=== PATIENT | female | born 1955 | race Caucasian/White ===

== ENCOUNTER → 2016-09-28 | Outpatient (CLI) | payer BC ==
--- NOTE | 2016-10-01 13:14 | MM ---
Reason for exam: screening (asymptomatic). Last mammogram was performed 3 years and 9 months ago. History: Patient is postmenopausal. Physical Findings: A clinical breast exam by your physician is recommended on an annual basis and results should be correlated with mammographic findings. MG 3D Screening Mammo W/Cad Bilateral CC, MLO, and XCCL view(s) were taken. Prior study comparison: December 18, 2012, CAD bilateral diagnostic mammogram. October 01, 2000, bilateral special view mammogram. The breast tissue is almost entirely fat. There is chronic nodularity in the right breast. No significant changes when compared with prior studies. ASSESSMENT: Benign, BI-RAD 2 RECOMMENDATION: Routine screening mammogram of both breasts in 1 year.
== END | disposition home or self-care (01) ==
LOC: RADMAMWWP 14:38
PROVIDERS: ATTEND Family Medicine
DX: Z12.31 Encounter for screening mammogram for malignant neoplasm of breast (principal)
CPT/HCPCS: 77063; G0202

== ENCOUNTER 2018-05-29 20:26 | Emergency (ER) | payer BC ==
[2018-05-29 20:36] VITALS: RESP 18; TEMP 97.9
[2018-05-29] MEDS ORDERED: ONDANSETRON 4 MG/2 ML VIAL IVP STA (21:30)
[2018-05-29] MEDS ORDERED: MECLIZINE 12.5 MG TAB PO STA (21:30)
[2018-05-29] MEDS ORDERED: SODIUM CHLORIDE 0.9% 1,000 ML IV STA (21:30)
--- NOTE | 2018-05-29 22:17 | CT ---
EXAMINATION TYPE: CT brain wo con DATE OF EXAM: 05/29/2018 COMPARISON: None HISTORY: dizziness, nausea CT DLP: 1058.4 mGycm Automated exposure control for dose reduction was used. FINDINGS: There is mild cerebral cortical atrophy. There is no mass effect nor midline shift. There is no sign of intracranial hemorrhage. There is no evidence of posterior fossa mass. There is opacification left maxillary sinus. Calvarium is intact. IMPRESSION: MINIMAL ATROPHY. NO ACUTE INTRACRANIAL ABNORMALITY. LEFT MAXILLARY SINUSITIS.
[2018-05-29 22:23] LABS: Basophils % (A) 0 %; Eosinophils # (A) 0.2 k/uL (0-0.7); Eosinophils % (A) 3 %; HCT 40.4 % (34.0-46.0); HGB 13.6 gm/dL (11.4-16.0); Lymphocytes # (A) 2.6 k/uL (1.0-4.8); Lymphocytes % (A) 34 %; MCH 28.8 pg (25.0-35.0); MCHC 33.8 g/dL (31.0-37.0); MCV 85.5 fL (80.0-100.0); Mean Platelet Volume 7.1; Monocytes # (A) 0.6 k/uL (0-1.0); Monocytes % (A) 7 %; Neutrophils % (A) 53 %; Platelet Count 206 k/uL (150-450); RBC 4.72 m/uL (3.80-5.40); RDW 12.9 % (11.5-15.5); WBC 7.5 k/uL (3.8-10.6)
[2018-05-29 22:26] LABS: ALT 32 U/L (9-52); AST 24 U/L (14-36); Albumin 4.2 g/dL (3.5-5.0); Alkaline Phosphatase 67 U/L (38-126); Anion Gap 7 mmol/L; Blood Urea Nitrogen 23 mg/dL (7-17); Carbon Dioxide 31 mmol/L (22-30); Chloride 104 mmol/L (98-107); Glucose 108 mg/dL (74-99); Potassium 4.5 mmol/L (3.5-5.1); Sodium 142 mmol/L (137-145); Total Bilirubin 0.4 mg/dL (0.2-1.3); Total Protein 7.6 g/dL (6.3-8.2)
[2018-05-29 22:28] LABS: Appearance,Urine Clear (Clear); Bilirubin,Urine Negative (Negative); Blood,Urine Negative (Negative); Color,Urine Colorless; Glucose,Urine (UA) Negative (Negative); Ketones,Urine Negative (Negative); Leukocyte Esterase,Urine Negative (Negative); Nitrite,Urine Negative (Negative); Protein,Urine Negative (Negative); Specific Gravity,Urine 1.003 (1.001-1.035); Urobilinogen,Urine <2.0 mg/dL (<2.0)
[2018-05-29 23:04] VITALS: BP 191/81; PULSE 54
--- NOTE | 2018-05-30 01:00 | ED ---
General Adult HPI - General Chief complaint: Dizziness Stated complaint: dizzy Time Seen by Provider: 05/29/18 21:08 Source: patient, RN notes reviewed Mode of arrival: ambulatory Limitations: no limitations - History of Present Illness Initial comments: 62-year-old female presents to the emergency determine for a chief complaint of dizziness 2 hours. Patient states she was doing the dishes when she suddenly felt like the room was spinning. She started to feel nauseous. He states she sat down and called her friend who brought her to the emergency department. She states that every turn in the car and her feel dizzy. She denies loss of consciousness, shortness of breath, or chest pain. Patient denies any difficulty walking or gait instability. She states moving her head seems to make the dizziness worse. She denies a history of vertigo but states her mother had vertigo. Patient denies a history of high cholesterol but does have blood pressure. Patient denies any cardiac history. She denies any head injuries. Patient has no other complaints at this time including shortness of breath, chest pain, abdominal pain, headache, or visual changes. - Related Data Home Medications Medication Instructions Recorded Confirmed Aspirin EC [Ecotrin] 325 mg PO DAILY PRN 05/29/18 05/29/18 Fish Oil/Dha/Epa [Fish Oil 1,200 1 cap PO DAILY 05/29/18 05/29/18 mg Fish Oil] Losartan Potassium [Cozaar] 25 mg PO HS 05/29/18 05/29/18 Multivitamins, Thera [Multivitamin 1 tab PO DAILY 05/29/18 05/29/18 (formulary)] Previous Rx's Medication Instructions Recorded Meclizine [Antivert] 25 mg PO TID PRN #30 tab 05/30/18 Allergies Allergy/AdvReac Type Severity Reaction Status Date / Time codeine Allergy Unknown Verified 05/29/18 21:15 pain medications Allergy Unknown Uncoded 05/29/18 20:37 Review of Systems ROS Statement: Those systems with pertinent positive or pertinent negative responses have been documented in the HPI. ROS Other: All systems not noted in ROS Statement are negative. 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 Seizures just in right arm. Pneumina History of Any Multi-Drug Resistant Organisms: None Reported Past Surgical History: Cholecystectomy Past Psychological History: No Psychological Hx Reported Smoking Status: Never smoker Past Alcohol Use History: None Reported Past Drug Use History: None Reported General Exam Limitations: no limitations General appearance: alert, in no apparent distress Head exam: Present: atraumatic, normocephalic, normal inspection Eye exam: Present: normal appearance, PERRL, EOMI. Absent: scleral icterus, conjunctival injection, nystagmus, periorbital swelling ENT exam: Present: normal exam, normal oropharynx (Uvula midline), mucous membranes moist, normal external ear exam. Absent: TM's normal bilaterally ( small area of scarring on inferior TM) Neck exam: Present: normal inspection, full ROM. Absent: tenderness, meningismus, lymphadenopathy Respiratory exam: Present: normal lung sounds bilaterally. Absent: respiratory distress, wheezes, rales, rhonchi, stridor Cardiovascular Exam: Present: regular rate, normal rhythm, normal heart sounds. Absent: systolic murmur, diastolic murmur, rubs, gallop, clicks GI/Abdominal exam: Present: soft, normal bowel sounds. Absent: distended, tenderness, guarding, rebound, rigid Neurological exam: Present: alert, oriented X3, CN II-XII intact Expanded Patient oriented to: Present: person, place, time Speech: Present: fluid speech Cranial nerves: EOM's Intact: Normal, Tongue Deviation: Normal, Nystagmus: Normal, Facial Sensation: Normal Cerebellar function: Finger to Nose: Normal, Heel to Sandy: Normal, Romberg: Normal Upper motor neuron: Pronator Drift: Normal, Babinski Sign: Normal Sensory exam: Upper Extremity Light Touch: Normal, Upper Extremity Pin Prick: Normal, Lower Extremity Light Touch: Normal, Lower Extremity Pin Prick: Normal Motor strength exam: RUE: 5, LUE: 5, RLE: 5, LLE: 5 Eye Response: (4) open spontaneously Motor Response: (6) obeys commands Verbal Response: (5) oriented Brittney Total: 15 Psychiatric exam: Present: normal affect, normal mood Course Vital Signs 05/29/18 05/29/18 20:31 23:03 Temperature 97.9 F Pulse Rate 62 54 L Respiratory 18 18 Rate Blood Pressure 168/87 191/81 O2 Sat by Pulse 96 98 Oximetry EKG Findings - EKG Comments: EKG Findings:: Normal sinus rhythm, ventricular rate 62, MN interval 144, QTC 418, no evidence of ST elevation or depression Medical Decision Making - Medical Decision Making 62-year-old female presents to the emergency department for a chief complaint of dizziness occurring 2 hours prior to arrival. Patient states movement makes the dizziness worse. [place]-Hallpike maneuver to the right worsened symptoms. Patient does have small scarring noted of the right tympanic membrane posterior aspect. On exam no focal neuro deficits. NIH 0. CBC and CMP are unremarkable. Troponin negative. Urine does not show any evidence of infection. CT shows no acute intracranial abnormality. Patient was given fluids and Antivert. On reevaluation patient is much better. She is sitting up in a chair speaking with friends. She states her symptoms has resolved significantly but she still has worsening symptoms when she turns her head too quickly or lays down. Patient likely extrinsic vertigo. She will be given ENT referral to monitor right tympanic membrane and scarring as well as vertigo symptoms. Patient is hypertensive here in the emergency department but did not take her losartan today. She did take this while in the emergency department and will follow up with her primary care for hypertension. She will return here if she has any worsening symptoms. - Lab Data Result diagrams: 05/29/18 21:45 05/29/18 21:45 Lab Results 05/29/18 05/29/18 05/29/18 Range/Units 21:45 21:45 21:45 WBC 7.5 (3.8-10.6) k/uL RBC 4.72 (3.80-5.40) m/uL Hgb 13.6 (11.4-16.0) gm/dL Hct 40.4 (34.0-46.0) % MCV 85.5 (80.0-100.0) fL MCH 28.8 (25.0-35.0) pg MCHC 33.8 (31.0-37.0) g/dL RDW 12.9 (11.5-15.5) % Plt Count 206 (150-450) k/uL Neutrophils % 53 % Lymphocytes % 34 % Monocytes % 7 % Eosinophils % 3 % Basophils % 0 % Neutrophils # 4.0 (1.3-7.7) k/uL Lymphocytes # 2.6 (1.0-4.8) k/uL Monocytes # 0.6 (0-1.0) k/uL Eosinophils # 0.2 (0-0.7) k/uL Basophils # 0.0 (0-0.2) k/uL Sodium 142 (137-145) mmol/L Potassium 4.5 (3.5-5.1) mmol/L Chloride 104 (98-107) mmol/L Carbon Dioxide 31 H (22-30) mmol/L Anion Gap 7 mmol/L BUN 23 H (7-17) mg/dL Creatinine 0.63 (0.52-1.04) mg/dL Est GFR (CKD-EPI)AfAm >90 (>60 ml/min/1.73 sqM) Est GFR (CKD-EPI)NonAf >90 (>60 ml/min/1.73 sqM) Glucose 108 H (74-99) mg/dL Calcium 10.0 (8.4-10.2) mg/dL Total Bilirubin 0.4 (0.2-1.3) mg/dL AST 24 (14-36) U/L ALT 32 (9-52) U/L Alkaline Phosphatase 67 (38-126) U/L Troponin I <0.012 (0.000-0.034) ng/mL Total Protein 7.6 (6.3-8.2) g/dL Albumin 4.2 (3.5-5.0) g/dL Urine Color Urine Appearance (Clear) Urine pH (5.0-8.0) Ur Specific [place] (1.001-1.035) Urine Protein (Negative) Urine Glucose (UA) (Negative) Urine Ketones (Negative) Urine Blood (Negative) Urine Nitrite (Negative) Urine Bilirubin (Negative) Urine Urobilinogen (<2.0) mg/dL Ur Leukocyte Esterase (Negative) 05/29/18 Range/Units 22:00 WBC (3.8-10.6) k/uL RBC (3.80-5.40) m/uL Hgb (11.4-16.0) gm/dL Hct (34.0-46.0) % MCV (80.0-100.0) fL MCH (25.0-35.0) pg MCHC (31.0-37.0) g/dL RDW (11.5-15.5) % Plt Count (150-450) k/uL Neutrophils % % Lymphocytes % % Monocytes % % Eosinophils % % Basophils % % Neutrophils # (1.3-7.7) k/uL Lymphocytes # (1.0-4.8) k/uL Monocytes # (0-1.0) k/uL Eosinophils # (0-0.7) k/uL Basophils # (0-0.2) k/uL Sodium (137-145) mmol/L Potassium (3.5-5.1) mmol/L Chloride (98-107) mmol/L Carbon Dioxide (22-30) mmol/L Anion Gap mmol/L BUN (7-17) mg/dL Creatinine (0.52-1.04) mg/dL Est GFR (CKD-EPI)AfAm (>60 ml/min/1.73 sqM) Est GFR (CKD-EPI)NonAf (>60 ml/min/1.73 sqM) Glucose (74-99) mg/dL Calcium (8.4-10.2) mg/dL Total Bilirubin (0.2-1.3) mg/dL AST (14-36) U/L ALT (9-52) U/L Alkaline Phosphatase (38-126) U/L Troponin I (0.000-0.034) ng/mL Total Protein (6.3-8.2) g/dL Albumin (3.5-5.0) g/dL Urine Color Colorless Urine Appearance Clear (Clear) Urine pH 7.0 (5.0-8.0) Ur Specific [place] 1.003 (1.001-1.035) Urine Protein Negative (Negative) Urine Glucose (UA) Negative (Negative) Urine Ketones Negative (Negative) Urine Blood Negative (Negative) Urine Nitrite Negative (Negative) Urine Bilirubin Negative (Negative) Urine Urobilinogen <2.0 (<2.0) mg/dL Ur Leukocyte Esterase Negative (Negative) Disposition Clinical Impression: Dizziness, Hypertension Disposition: HOME SELF-CARE Condition: Good Instructions: Vertigo (ED), Dizziness (ED) Additional Instructions: Please take Antivert as directed. Please follow-up with primary care in 1-2 days. Please return to the emergency department if you have any worsening symptoms. Prescriptions: Meclizine [Antivert] 25 mg PO TID PRN #30 tab PRN Reason: dizzy Is patient prescribed a controlled substance at d/c from ED?: No Referrals: Gustavo Collins DO [Primary Care Provider] - 1-2 days Fermin Granados DO [Doctor of Osteopathic Medicine] - 1-2 days Time of Disposition: 00:49
== END 2018-05-30 01:18 | disposition home or self-care (01) ==
LOC: EC 20:26
DX: I10 Essential (primary) hypertension (principal); R42 Dizziness and giddiness; R11.0 Nausea; Z90.49 Acquired absence of other specified parts of digestive tract; Z79.899 Other long term (current) drug therapy; Z88.5 Allergy status to narcotic agent
CPT/HCPCS: 36415; 70450; 80053; 81003; 84484; 85025; 93005; 96361; 96374; 99284

== ENCOUNTER → 2020-04-12 | Outpatient (CLI) | payer BC ==
[2020-04-12 10:39] VITALS: BP 179/85; PULSE 82; RESP 20; TEMP 98.2
--- NOTE | 2020-04-12 14:21 | P.HPOB ---
History of Present Illness H&P Date: 04/12/20 Chief Complaint: The patient is here for her routine gynecologic exam. This is a 64-year-old 032 with an LMP of approximately 2007. The patient is here to establish with this office. It has been about 8 years since her last pelvic exam. She states she has been experiencing nipple discharge. This first was noticed about 6 years ago and she has had this on and off since then. It has occurred from both the breasts, but most recently during the past 6 or 7 months it has only been on the right side. She typically can have small yellow discharge but she also has noticed some old blood in the discharge which can look brownish. It continues to be intermittent. She has noticed it spontaneously on her bra. She denies any peripheral vision changes. She denies feeling any breast lumps. She is otherwise without gynecologic complaints and denies any postmenopausal vaginal bleeding. 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 Using a low sugar diet, she lost weight and went down to 209 pounds. She has not followed the diet and gained much of the weight back. She also attributes to some of the weight gain to the Covid pandemic. She denies respiratory, cardiac, and GI problems. 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 Seizures just in right arm. Pneumonias in the past. Overweight. PAST [employer] HISTORY: She has no history of STDs. History of Any Multi-Drug Resistant Organisms: None Reported Past Surgical History: Cholecystectomy Additional Past Surgical History / Comment(s): Colonoscopy but she is unsure when. Past Psychological History: No Psychological Hx Reported Smoking Status: Never smoker Past Alcohol Use History: None Reported Past Drug Use History: None Reported Additional History: She is and is not sexually active. She works at the [employer] but will be retiring from this job because of the Covid pandemic. - Past Family History Father Family Medical History: Myocardial Infarction (RI) Mother Family Medical History: Congestive Heart Failure (CHF), Diabetes Mellitus Medications and Allergies Home Medications Medication Instructions Recorded Confirmed Type Aspirin EC [Ecotrin] 325 mg PO DAILY PRN 05/29/18 04/12/20 History Fish Oil/Dha/Epa [Fish Oil 1,200 1 cap PO DAILY 05/29/18 04/12/20 History mg Fish Oil] Losartan Potassium [Cozaar] 25 mg PO HS 05/29/18 04/12/20 History Multivitamins, Thera [Multivitamin 1 tab PO DAILY 05/29/18 04/12/20 History (formulary)] Meclizine [Antivert] 25 mg PO TID PRN #30 tab 05/30/18 04/12/20 Rx Allergies Allergy/AdvReac Type Severity Reaction Status Date / Time codeine Allergy Unknown Verified 04/12/20 10:31 pain medications Allergy Unknown Uncoded 04/12/20 10:31 Exam Vital Signs Temp Pulse Resp BP Pulse Ox 04/12/20 10:31 98.2 F 82 20 179/85 97 Intake and Output 04/11/20 04/12/20 04/12/20 22:59 06:59 14:59 Other: Weight 107.048 kg Height 5 feet 2 inches, weight 236 pounds, BMI 43.2. This is a well-developed well-nourished heavyset white female who is alert and oriented times 3 in no acute distress. HEENT: Within normal limits. Visual pierre are intact. NECK: Supple without mass or thyromegaly. CHEST AND LUNGS: Clear to auscultation. HEART: Regular rate and rhythm. BREASTS: Are without mass. Right nipple discharge is seen with squeezing the nipple. The discharge is yellow in color and clear. Hemoccult testing of the discharge is weakly positive. No discharge could be expressed from the left nipple. AXILLARY EXAM: Negative for adenopathy. BACK: Negative for CVA tenderness. ABDOMEN: Soft, obese, nontender, without palpable masses. PELVIC EXAM: Normal external genitalia with mild atrophy. Cervix and vagina appear normal with mild atrophy. There is no unusual discharge. There is no evidence of prolapse. The uterus is midposition, nongravid size and nontender. There are no palpable adnexal masses or tenderness. Bimanual examination is somewhat limited secondary to her size. RECTAL EXAM: Rectovaginal exam is negative for mass or tenderness and is negative for occult blood. EXTREMITIES: Nontender. IMPRESSION: 1. 64-year-old menopausal female with chronic nipple discharge. Currently discharge could be expressed from the right nipple only. The patient believes she has seen blood in the nipple discharge and the discharge from the right breast is Hemoccult positive. 2. Normal gynecologic pelvic exam. 3. Elevated blood pressure with history of hypertension. 4. Obesity. PLAN: 1. Pap smear was performed. 2. Self breast awareness was discussed with the patient. 3. Diagnostic bilateral mammogram will be done today. 4. Referral to Dr. Derek Vegas regarding the bloody nipple discharge. 5. We have discussed her elevated blood pressure. I have recommended that she check her own blood pressure at home on a regular basis and follow up with Dr. Collins for blood pressure elevations. 6. Blood testing will include prolactin and TSH. 7. I have recommended screening colonoscopy since it is probably been more than 10 years since her last one. She will discuss this with her PCP and see if it can be arranged through her PCP. 8. She was advised to return in one year for her annual well woman exam and as needed.
--- NOTE | 2020-04-26 09:06 | MM ---
Reason for exam: clinical finding. Last mammogram was performed 3 years and 6 months ago. History: Patient is postmenopausal. Physical Findings: Dr. Josue did breast exam. MG 3D Diag Mammo W/Cad [facility] Bilateral CC and MLO view(s) were taken. Prior study comparison: September 28, 2016, bilateral MG 3d screening mammo w/cad. December 18, 2012, CAD bilateral diagnostic mammogram. The breast tissue is heterogeneously dense. This may lower the sensitivity of mammography. Stable benign calcifications. No significant new findings when compared with previous films. These results were verbally communicated with the patient and result sheet given to the patient on 04/12/20. ASSESSMENT: Benign, BI-RAD 2 RECOMMENDATION: Routine screening mammogram of both breasts in 1 year. Manage patient on a clinical basis.
== END | disposition home or self-care (01) ==
LOC: WWCWWP 10:08
PROVIDERS: ATTEND Obstetrics & Gynecology
DX: N64.52 Nipple discharge (principal)
CPT/HCPCS: 77062; 77066

== ENCOUNTER → 2020-04-12 | Outpatient (CLI) | payer BC | END | disposition home or self-care (01) | LOC: LABWHC1 12:28 | PROVIDERS: ATTEND Obstetrics & Gynecology | DX: O92.6 Galactorrhea (principal) | CPT/HCPCS: 36415; 84146; 84443 ==

== ENCOUNTER → 2020-04-14 | Outpatient (CLI) | payer BC ==
[2020-04-14 14:17] VITALS: BP 167/87; PULSE 85; RESP 16; TEMP 98
--- NOTE | 2020-04-14 15:01 | P.GSHP ---
History of Present Illness H&P Date: 04/14/20 Chief Complaint: bloody right nipple discharge Isabel is a 64 year old white female seen in consultation for Dr. Josue regarding right breast bloody nipple discharge. She has been having bilateral nipple discharge for approximately 10 years. The right side has been noted to be bloody in the past. She was recently seen by Dr. Josue and a guaiac test was done on the right side which was positive. At that point she did not have any left nipple discharge. Additionally she had a bilateral diagnostic mammogram done which she was told was benign, we are awaiting the final report. She is complaining of migrain and sinus headaches. She is not complaining of any proli ferative visual changes. She does not have any pain in her breast. She is not complaining of any lumps masses or nodules in her breast. (Prolactin level 5 in normal limits, and TSH 3.2 to also within normal limits) from 04/12/20 Caffeine: Iced tea, diet Pepsi (48 oz/day) Nicotine: Negative Theophylline: daily Family History: none Hormonal History: menarche: 13 miscarriages:4, first born at 28, breast fed: yes menopause: 53 BCP: 2 years hormones: none Surgical history: 1. gallbaldder 2. D&C Medical History: 1. scar tissue left side of brain/seizures right arm 2. HTN Social History: smoke:none alcohol: none drugs: none - Constitutional Constitutional: Reports fever - EENT Eyes: denies blurred vision, denies pain Ears: deny: decreased hearing, tinnitus Ears, nose, mouth and throat: Reports headache - Breasts Breasts: bilateral: as per HPI - Cardiovascular Cardiovascular: Reports high blood pressure - Respiratory Respiratory: Denies cough, Denies 7 - Gastrointestinal Gastrointestinal: Denies abdominal pain, Denies diarrhea, Denies nausea, Denies vomiting - Genitourinary (Female) Comment: UTI in past - Menstruation Menstruation: Reports postmenopausal - Musculoskeletal Comment: arthritis - Integumentary Integumentary: Denies pruritus, Denies rash - Neurological Neurological: Denies numbness, Denies weakness - Psychiatric Psychiatric: Denies anxiety, Denies depression - Endocrine Endocrine: Reports weight change, Denies fatigue - Hematologic/Lymphatic Comment: aspirin, fish oil - Allergic/Immunologic Allergic/Immunologic: Reports as per HPI Past Medical History Past Medical History: Hypertension Additional Past Medical History / Comment(s): 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 Seizures just in right arm. Pneumina History of Any Multi-Drug Resistant Organisms: None Reported Past Surgical History: Cholecystectomy Past Psychological History: No Psychological Hx Reported Smoking Status: Never smoker Past Alcohol Use History: None Reported Past Drug Use History: None Reported Medications and Allergies Home Medications Medication Instructions Recorded Confirmed Type Aspirin EC [Ecotrin] 325 mg PO DAILY PRN 05/29/18 04/14/20 History Fish Oil/Dha/Epa [Fish Oil 1,200 1 cap PO DAILY 05/29/18 04/14/20 History mg Fish Oil] Losartan Potassium [Cozaar] 25 mg PO HS 05/29/18 04/14/20 History Multivitamins, Thera [Multivitamin 1 tab PO DAILY 05/29/18 04/14/20 History (formulary)] Meclizine [Antivert] 25 mg PO TID PRN #30 tab 05/30/18 04/14/20 Rx Allergies Allergy/AdvReac Type Severity Reaction Status Date / Time codeine Allergy Unknown Verified 04/14/20 14:00 pain medications Allergy Unknown Uncoded 04/14/20 14:00 Surgical - Exam Vital Signs Temp Pulse Resp BP Pulse Ox 98.0 F 85 16 167/87 97 04/14/20 14:03 04/14/20 14:03 04/14/20 14:03 04/14/20 14:03 04/14/20 14:03 BMI 43.2 - General well developed, well nourished, no distress - Eyes normal ocular movement - ENT normal pinna - Neck no masses, trachea midline - Respiratory normal respiratory effort, clear to auscultation - Cardiovascular Rhythm: regular Heart Sounds: normal: S1, S2 - Abdomen Abdomen: soft, non tender, no guarding, no rigid, no rebound - Integumentary normal turgor - Neurologic no disoriented, no combative - Musculoskeletal normal gait - Psychiatric oriented to time, oriented to person, oriented to place, speech is normal, memory intact breast exam: BRA: 40C inspection: bilateral grade 3 ptosis Palpation: Right breast: Multi-positional exam fibrocystic breast changes, no dominant masses or nodules of concern palpation reveals nipple discharge at the 9 o'clock position Right axilla: No adenopathy of concern Left breast: Multi-positional exam fibrocystic breast changes, no dominant masses or nodules of concern no nipple discharge Left axilla: No adenopathy of concern Results Re: mammogram results pending prolactin level 5 TSH 3.22 Assessment and Plan Assessment: Impression: 1. Lateral nipple discharge, right side bloody 2. Awaiting mammogram results 3. Hypertension 4. Normal prolactin level 5. history of seizures right arm Plan: 1. Ultrasound right breast at 9 o'clock position to evaluate for possible dilated ducts 2. Right breast duct exploration 3. Medical clearance secondary to seizures CC: Dr. Josue, Dr. Collins encounter 40 minutes, > 50% of time in planning and counselling
== END | disposition home or self-care (01) ==
LOC: WWCWWP 13:54
PROVIDERS: ATTEND Surgery
DX: Z53.9 Procedure and treatment not carried out, unspecified reason (principal)

== ENCOUNTER → 2020-04-14 | Outpatient (CLI) | payer BC ==
--- NOTE | 2020-04-15 14:36 | USB ---
Reason for exam: clinical finding. History: Patient is postmenopausal. US Breast RT Right complete breast ultrasound includes all four quadrants, the retroareolar region and axilla. Finding demonstrates a 0.3 x 0.3 x 0.3cm cystic lesion at 1 o'clock and a duct with echogenic foci at 9 o'clock, corresponds to clinical findings, wire can be placed for surgeon at this location. These results were verbally communicated with the patient and result sheet given to the patient on 04/14/20. ASSESSMENT: Suspicious, BI-RAD 4 RECOMMENDATION: Surgical consultation of the right breast. Called office with mammographic findings and has scheduled an appointment for the patient for 04/14/[address] Lundberg. PRELIMINARY REPORT CALLED AND FAXED TO DR. LUNDBERG ON 04/15/20.
== END | disposition home or self-care (01) ==
LOC: RADUSWWP 14:59
PROVIDERS: ATTEND Surgery
DX: N64.52 Nipple discharge (principal)

== ENCOUNTER 2020-04-19 09:45 | Day surgery (SDC) | payer BC ==
[2020-04-15 16:57] VITALS: BMI 43.1
[~2020-04-19 09:45] MED LIST: DEXAMETHASONE SOD PHOSPHATE 10 MG/ML 1 ML VIAL IV ONE; HYDROmorphone 0.5 MG/0.5 ML SYRINGE IVP PRN; LACTATED RINGERS 1,000 ML IV SCH; LIDOCAINE 1% (10MG/ML) FOR IV START INTRADERMA PRN; MIDAZOLAM 2 MG/2 ML VIAL IV PRN; ONDANSETRON 4 MG/2 ML VIAL IVP ONE; Pre Op ABX Message 1 EACH MISC MISCELLANE ONE
[2020-04-19] MEDS ORDERED: HEPARIN SODIUM,PORCINE 5,000 UNIT/ML 1 ML VIAL ONE (10:26)
[2020-04-19] MEDS ORDERED: LIDOCAINE 1% INJ 10MG/ML (20 ML MDV) SQ ONE (11:39)
[2020-04-19] MEDS ORDERED: HEPARIN SODIUM,PORCINE 5,000 UNIT/ML 1 ML VIAL SQ ONE (13:14)
[2020-04-19] MEDS ORDERED: MIDAZOLAM 2 MG/2 ML VIAL ONE (13:39)
[2020-04-19] MEDS ORDERED: SUCCINYLCHOLINE CHLORIDE VIAL 200 MG/10 ML VIAL IV ONE (13:39)
[2020-04-19] MEDS ORDERED: PROPOFOL 10 MG/ML 20 ML VIAL IV ONE (13:39)
[2020-04-19] MEDS ORDERED: fentaNYL (PF) 50 MCG/ML 2 ML AMP ONE (13:39)
[2020-04-19] MEDS ORDERED: LIDOCAINE 1% INJ 10MG/ML (20 ML MDV) ONE (13:39)
[2020-04-19] MEDS ORDERED: LACTATED RINGERS 1,000 ML IV ONE (14:30)
--- NOTE | 2020-04-19 14:33 | USB ---
EXAMINATION TYPE: US breast localization RT, MG surgical specimen RT DATE OF EXAM: 04/19/2020 CLINICAL HISTORY: 64-year-old female with long-standing intermittent bloody nipple discharge on the r ight. Referred for needle localization to assist for duct exploration. TECHNIQUE: Needle localization with wire placement and surgical excision of area of concern in the ri t breast. COMPARISON: 04/14/2020 FINDINGS: The procedure of needle localization with wire placement and than surgical excision was exp lained to the patient. Benefits, alternatives, and risks were discussed. An informed consent was th en obtained. Dr. Derek Vegas was consulted and requested an approach from the nipple. Medial to lateral approach wa s utilized to place the wire parallel to the duct in question and then through the 9:00 intraductal n odule. The overlying skin was prepped and draped in usual sterile fashion. Lidocaine was used as anesthetic into the skin and subcutaneous tissue up to the level of area of concern. A 5 cm needle was used. It was placed via a medial to lateral approach under mammographic guidance. At this point, wire was placed and the needle was withdrawn. The wire was fixed to patient's skin. Images were marked for surgeon. The patient tolerated the procedure well without any immediate compl ication. The patient was kept in the radiology department for short stay after the procedure and the n taken to surgery for surgical excision. The wire as well as the solitary calcification associated with the nodule on mammogram are identified in specimen mammogram. The patient was kept in hospital for short stay after the procedure and then discharged home in stable condition. IMPRESSION: Successful, uncomplicated needle localization with wire placement and surgical excision o f the intraductal lesion within the 9:00 right breast. Full pathology results to follow.
--- NOTE | 2020-04-19 14:34 | P.OP ---
Date of Procedure: 04/19/20 Preoperative Diagnosis: Bloody nipple discharge right breast 9:00 Postoperative Diagnosis: Same Procedure(s) Performed: Ultrasound localization of dilated duct, duct excision Anesthesia: ROXANA Surgeon: Lizzette Lundberg Estimated Blood Loss (ml): 5 Pathology: other (Breast tissue) Condition: stable Disposition: same day Indications for Procedure: bloody nipple discharge 9 o'clock position right breast Operative Findings: Fibrofatty breast tissue Description of Procedure: Following needle localization of area of dilated that the right breast was prepped and draped in a sterile fashion. Periareolar incision was made and carried down to the needle. Surrounding tissue was excised and the dilated ductal tissue was excised primarily of the nipple down to the chest wall. After assured that hemostasis was attained the specimen was painted for orientation. Titanium clips were placed two superior and one Medial. The deep tissues were closed using 3-0 Vicryl suture. This is followed by closure of the subcutaneous tissue with 3-0 Vicryl. The skin was closed using a 4-0 Monocryl. Nylon suture was placed at the nipple site with a small defect in the skin was at the site where the defect was taken down. The patient tolerated procedure in stable condition. All instrument and sponge counts were correct at the end of the case.
--- NOTE | 2020-04-19 14:35 | P.DS ---
Providers Attending physician: Lizzette Lundberg Primary care physician: Gustavo Collins Plan - Discharge Summary Discharge Rx Participant: No New Discharge Prescriptions: No Action Multivitamins, Thera [Multivitamin (formulary)] 1 tab PO DAILY Losartan Potassium [Cozaar] 25 mg PO HS Aspirin EC [Ecotrin] 325 mg PO DAILY PRN PRN Reason: Pain Fish Oil/Dha/Epa [Fish Oil 1,200 mg Fish Oil] 1 cap PO DAILY Meclizine [Antivert] 25 mg PO TID PRN #30 tab PRN Reason: dizzy Discharge Medication List Aspirin EC [Ecotrin] 325 mg PO DAILY PRN 05/29/18 [History] Fish Oil/Dha/Epa [Fish Oil 1,200 mg Fish Oil] 1 cap PO DAILY 05/29/18 [History] Losartan Potassium [Cozaar] 25 mg PO HS 05/29/18 [History] Multivitamins, Thera [Multivitamin (formulary)] 1 tab PO DAILY 05/29/18 [History] Meclizine [Antivert] 25 mg PO TID PRN #30 tab 05/30/18 [Rx] Follow up Appointment(s)/Referral(s): Lizzette Lundberg MD [STAFF PHYSICIAN] - 1 Week Activity/Diet/Wound Care/Special Instructions: May shower after 48 hours Follow-up Dr. Reed in 1 week wear bra at all times Do not drive for 24 hours after discharge or if taking narcotic pain medication Discharge Disposition: HOME SELF-CARE
[2020-04-19 14:44] VITALS: TEMP 96.8
--- NOTE | 2020-04-19 15:08 | MM ---
Reason for exam: additional evaluation requested from abnormal screening. Last mammogram was performed less than 1 month ago. History: Patient is postmenopausal. MG Diagnostic Mammo RT Wo CAD CC and MLO view(s) were taken of the right breast. Prior study comparison: April 12, 2020, bilateral MG 3d diag mammo w/cad [facility]. September 28, 2016, bilateral MG 3d screening mammo w/cad. ASSESSMENT: Post procedure mammogram for marker placement RECOMMENDATION: Ultrasound of the right breast in 6 months. PENDING PATHOLOGY RESULTS.
[2020-04-19 15:24] VITALS: RESP 16
[2020-04-19 16:06] VITALS: BP 175/90; PULSE 75
[2020-04-19] MEDS ORDERED: IBUPROFEN 400 MG TAB PO STA (16:26)
[2020-04-19] MEDS ORDERED: IBUPROFEN 200 MG TAB PO ONE (16:35)
== END 2020-04-19 16:45 | disposition home or self-care (01) ==
LOC: OR 09:45
PROVIDERS: ATTEND Surgery
DX: D24.1 Benign neoplasm of right breast (principal); I10 Essential (primary) hypertension; Z88.5 Allergy status to narcotic agent; Z87.01 Personal history of pneumonia (recurrent); Z79.82 Long term (current) use of aspirin; Z79.899 Other long term (current) drug therapy; Z90.49 Acquired absence of other specified parts of digestive tract; Z98.890 Other specified postprocedural states; Z86.69 Personal history of other diseases of the nervous system and sense organs
CPT/HCPCS: 88307; 77065; 76098; 19285; 19110; J2250; J0330; J1644; J1100; J2405; J2001; J3010; J2704

== ENCOUNTER → 2020-04-29 | Outpatient (CLI) | payer BC ==
[2020-04-29 12:36] VITALS: BP 157/70; PULSE 85; RESP 18; TEMP 98.1
--- NOTE | 2020-04-29 12:55 | P.PN ---
Progress Note - Text Progress Note Date: 04/29/20 Isabel is a 64-year-old white female status post right breast duct exploration on . Pathology revealed an intraductal papilloma. This was completely excised. Patient tolerated the procedure without difficulty. Physical exam: Lungs: Clear Heart: Regular rate and rhythm Incision: Clean and dry mild erythema, at the nipple site to sutures were removed and this is healing well The patient does complain of some mild erythema under her right arm and on examination this appears to be questionable fungal infection Impression: 1. Patient status post right nipple duct exploration 2. Pathology intraductal papilloma 3. Probable fungal infection right axilla Plan: 1. Follow-up right breast mammogram in 6 months with appointment 2. Nystatin to area of erythema right axilla 3. Follow-up here 3 weeks to recheck axilla and nipple site Cc: Dr. Martin
== END | disposition home or self-care (01) ==
LOC: WWCWWP 12:22
PROVIDERS: ATTEND Surgery
DX: Z53.9 Procedure and treatment not carried out, unspecified reason (principal)

== ENCOUNTER → 2021-02-13 | Outpatient (CLI) | payer OTHER ==
--- NOTE | 2021-02-14 04:43 | MR ---
EXAMINATION TYPE: MR knee LT wo con DATE OF EXAM: 02/13/2021 COMPARISON: None HISTORY: Left knee pain x 1-2 years, no hx of trauma. Multiplanar multiecho imaging of the left knee without contrast. The posterior cruciate ligament is intact. There is almost complete disruption of the anterior crucia te ligament. There is moderate spurring on the patella. There is narrowing of the patellofemoral join t space. There is severe narrowing of the medial joint space of the knee with spurring of the medial femoral a nd tibial condyles. There is knee joint effusion. There is mild thinning of the lateral meniscus. The re is almost complete obliteration of the medial meniscus. There is only part of the anterior horn re maining. There is minimal lateral tibial subluxation. I see no evidence of a fracture. The collateral ligaments appear intact. IMPRESSION: Moderately severe osteoarthritis in the medial joint space and the patellofemoral joint space. Knee j oint effusion. Obliteration of most of the medial meniscus. There is almost complete tear of the anterior cruciate ligament.
== END | disposition home or self-care (01) ==
LOC: RADMRIMAIN 20:14
PROVIDERS: ATTEND Orthopaedic Surgery
DX: M17.12 Unilateral primary osteoarthritis, left knee (principal); S83.512A Sprain of anterior cruciate ligament of left knee, initial encounter

== ENCOUNTER → 2021-03-15 | Outpatient (CLI) | payer OTHER ==
[2021-03-15 15:35] LABS: Basophils % (A) 0 %; Eosinophils # (A) 0.2 k/uL (0-0.7); Eosinophils % (A) 2 %; HCT 44.5 % (34.0-46.0); HGB 15.1 gm/dL (11.4-16.0); Lymphocytes # (A) 2.3 k/uL (1.0-4.8); Lymphocytes % (A) 31 %; MCH 30.2 pg (25.0-35.0); MCHC 33.8 g/dL (31.0-37.0); MCV 89.4 fL (80.0-100.0); Mean Platelet Volume 7.8; Monocytes # (A) 0.5 k/uL (0-1.0); Monocytes % (A) 7 %; Neutrophils # (A) 4.2 k/uL (1.3-7.7); Neutrophils % (A) 57 %; Platelet Count 235 k/uL (150-450); RBC 4.98 m/uL (3.80-5.40); RDW 12.7 % (11.5-15.5); WBC 7.4 k/uL (3.8-10.6)
[2021-03-15 15:44] LABS: Potassium 4.3 mmol/L (3.5-5.1)
== END | disposition home or self-care (01) ==
LOC: LABPAT 14:38
PROVIDERS: ATTEND Orthopaedic Surgery
DX: Z01.818 Encounter for other preprocedural examination (principal); M23.92 Unspecified internal derangement of left knee
CPT/HCPCS: 36415; 80051; 85025; 93005

== ENCOUNTER 2021-03-23 10:37 | Day surgery (SDC) | payer OTHER ==
[2021-03-21 15:01] VITALS: BMI 41.3
--- NOTE | 2021-03-22 17:23 | HP ---
HISTORY AND PHYSICAL REASON FOR ADMISSION: Surgery scheduled 03/23/2021. HISTORY OF PRESENT ILLNESS: Isabel Dickey is a 65-year-old patient seen with progressive left knee pain. We discussed options for treatment. She elected to proceed with arthroscopy. Consent is obtained. PAST MEDICAL HISTORY: Hypertension. SURGICAL HISTORY: Cholecystectomy, breast biopsy. MEDICATIONS: Losartan, Meloxicam. ALLERGIES: CODEINE. SOCIAL HISTORY: She denies tobacco use. PHYSICAL EVALUATION OF THE LEFT KNEE: Range of motion 0-120. Mild effusion. Tenderness medial joint line. Positive medial Ranulfo's. Ligaments stable. Hip rotation without pain. Distal neurovascular exam intact. RADIOGRAPHS: Radiographs of the left knee revealed moderate osteoarthritis. MRI left knee revealed ACL tear obliteration, medial meniscus, osteoarthritis and intra-articular effusion. IMPRESSION: 1. Internal derangement of left knee with meniscal tear and ACL tear. 2. Left knee osteoarthritis. 3. Hypertension. PLAN: Left knee arthroscopy with partial meniscectomy and debridement. Surgery is 03/23/2021. MMODL / IJN: [id number] /
[~2021-03-23 10:37] MED LIST changes: -DEXAMETHASONE SOD PHOSPHATE 10 MG/ML 1 ML VIAL IV ONE; +DEXAMETHASONE SOD PHOSPHATE 4 MG/ML 1 ML VIAL IV ONE; -LIDOCAINE 1% (10MG/ML) FOR IV START INTRADERMA PRN; -MIDAZOLAM 2 MG/2 ML VIAL IV PRN; -Pre Op ABX Message 1 EACH MISC MISCELLANE ONE
[2021-03-23] MEDS ORDERED: LIDOCAINE 1% (10MG/ML) FOR IV START INTRADERMA ONE (11:46)
[2021-03-23] MEDS ORDERED: LIDOCAINE 1% INJ 10MG/ML (20 ML MDV) ONE (12:55)
[2021-03-23] MEDS ORDERED: LABETALOL 5 MG/ML VIAL MDV ONE (12:55)
[2021-03-23] MEDS ORDERED: SUCCINYLCHOLINE CHLORIDE 100 MG/5 ML SYR IV ONE (12:55)
[2021-03-23] MEDS ORDERED: MIDAZOLAM 2 MG/2 ML VIAL ONE (12:55)
[2021-03-23] MEDS ORDERED: fentaNYL (PF) 50 MCG/ML 2 ML AMP ONE (12:55)
[2021-03-23] MEDS ORDERED: PROPOFOL 10 MG/ML 20 ML VIAL IV ONE (12:55)
[2021-03-23] MEDS ORDERED: BUPIVACAINE (PF) 0.25% 30 ML VIAL SQ ONE (13:22)
[2021-03-23] MEDS: fentaNYL (PF) 50 MCG/ML 2 ML AMP IVP ONE ×3 (13:58→14:17)
--- NOTE | 2021-03-23 14:00 | P.OP ---
Date of Procedure: 03/23/21 Preoperative Diagnosis: Internal derangement left knee Postoperative Diagnosis: 1. Tear medial meniscus left knee 2. Grade 3 chondromalacia medial femoral condyle left knee 3. Partial ACL tear left knee 4. Loose body left knee 5. Reactive synovitis medial, lateral and suprapatellar compartments left knee Procedure(s) Performed: 1. Arthroscopic partial medial meniscectomy left knee 2. Arthroscopic chondroplasty medial femoral condyle left knee 3. Arthroscopic debridement partial ACL tear left knee 4. Arthroscopic removal loose body left knee 5. Arthroscopic partial synovectomy medial, lateral and suprapatellar compartments left knee Anesthesia: FRANKYA, local Surgeon: Dave Spear Estimated Blood Loss (ml): 7 Pathology: none sent Condition: stable Disposition: PACU Indications for Procedure: 65-year-old patient seen with progressive left knee pain. After treatment options were discussed, she elected to proceed with arthroscopy. Operative Findings: See description of procedure Description of Procedure: Patient was taken to the operative suite. Patient underwent a general anesthetic by the department of anesthesia. Patient was given preoperative antibiotics. The left lower extremity was placed in a well-padded arthroscopic leg guan. The left leg was prepped and draped in the normal sterile orthopedic fashion. A lateral parapatellar and suprapatellar incision was made. Trochars were inserted. Arthroscopy was initiated. Suprapatellar pouch revealed diffuse thick reactive synovitis. The patellofemoral joint appeared to articulate congruently. There was grade 2/3 chondral malacia the patella with some fraying of the osteochondral surface mainly the patella. There was some diffuse thick reactive synovitis.. The scope was guided into the medial gutter. No loose bodies or plica were identified. The scope was then guided into the medial compartment. A medial parapatellar incision was made. Trocar inserted followed by probe. I encountered a loose body the medial compartment. I introduced a loose body forceps infiltrated without difficulty. I noted the tear of the anterior junction posterior horn and midbody medial meniscus. There were grade 3 chondromalacia changes of the medial femoral condyle with some osteochondral tears present. There was thick reactive synovitis anteriorly. I performed a partial medial meniscectomy getting down to stable meniscal tissue. I performed a chondroplasty of the medial femoral condyle getting down to stable osteochondral tissue. I performed a partial synovectomy decompressing reactive synovitis. The residual meniscus was stable. The residual osteochondral surface was stable. There was good decompression of the synovitis. Scope and probe were then guided into the intercondylar notch. There was some partial tearing of the anterior cruciate ligament. I introduced a motorized shaver and debrided out that area partial tearing. There was approximately 50% of the residual fibers remaining. There appeared stable. The PCL was palpable and stable. The scope and probe were then guided into lateral compartment. Lateral meniscus was found to be stable. There were some grade 2 chondromalacia changes involving lateral compartment. There was some reactive synovitis anteriorly. I introduced a motorized shaver and performed a partial synovectomy. Shaver was removed. There was good decompression synovitis. The scope was in guided back into the suprapatellar compartment. I introduced a motorized shaver into the suprapatellar compartment. I debrided some piecemeal fragments of meniscus I encountered. I performed a partial synovectomy. Shaver was removed. The residual osteochondral surface of the patella appeared stable. There was good decompression of the synovitis. Instruments were now removed from the joint. The joint was infiltrated with .25% Marcaine. Steri-Strips were applied to the portal sites. Sterile dressings were applied. The patient was placed into a DARBY hose. No tourniquet was utilized. The patient was awakened, transferred to a bed and taken to recovery stable satisfactory condition.
[2021-03-23] MEDS: MIDAZOLAM 2 MG/2 ML VIAL IVP ONE ×3 (14:02→14:17)
[2021-03-23 14:11] VITALS: TEMP 97
[2021-03-23 14:20] VITALS: RESP 16
[2021-03-23] MEDS ORDERED: LACTATED RINGERS 1,000 ML IV ONE (14:38)
[2021-03-23] MEDS ORDERED: HYDROcodone/APAP 5-325MG 1 EACH TAB PO ONE ×2 (14:41)
[2021-03-23] MEDS ORDERED: HYDROcodone/APAP 5-325MG 1 EACH TAB ONE (14:42)
[2021-03-23] MEDS ORDERED: MEPERIDINE 50 MG/ML SYRINGE IVP ONE (15:11)
[2021-03-23 15:32] VITALS: BP 166/70; PULSE 51
== END 2021-03-23 16:18 | disposition home or self-care (01) ==
LOC: OR 10:37
PROVIDERS: ATTEND Orthopaedic Surgery
DX: M25.862 Other specified joint disorders, left knee (principal); S83.242A Other tear of medial meniscus, current injury, left knee, initial encounter; S83.512A Sprain of anterior cruciate ligament of left knee, initial encounter; M65.9 Synovitis and tenosynovitis, unspecified; I10 Essential (primary) hypertension; Z88.5 Allergy status to narcotic agent; Z79.899 Other long term (current) drug therapy; E66.01 Morbid (severe) obesity due to excess calories
CPT/HCPCS: 29881; 29876; J2250; J1100; J2175; J0690; J2405; J2001; J3010; J0330; J2704

== ENCOUNTER → 2022-05-29 | Outpatient (CLI) | payer BC ==
--- NOTE | 2022-05-29 15:36 | XR ---
EXAMINATION TYPE: XR clavicle LT DATE OF EXAM: 05/29/2022 COMPARISON: Chest x-ray 2016 HISTORY: Recent injection Left clavicle 2 weeks ago with swelling and pain. TECHNIQUE: 2 views left clavicle. FINDINGS: No acute displaced fracture. No suspicious focal osseous lesion or bony erosive change. Ove rlying soft tissue is unremarkable. IMPRESSION: As above.
== END | disposition home or self-care (01) ==
LOC: RADXRYALE 14:43
PROVIDERS: ATTEND Family Medicine
DX: R22.2 Localized swelling, mass and lump, trunk (principal)